=== PATIENT | male | born 1960 | race Caucasian/White ===

== ENCOUNTER 2017-10-30 21:41 | Emergency (ER) | payer OTHER ==
[~2017-10-30] VITALS: Ht 177.8 cm; Wt 90.7 kg
[2017-10-30 21:57] VITALS: BP 127/76
== END 2017-10-30 22:51 | disposition admitted as inpatient to this hospital (09) ==
LOC: ERH 21:41
DX: G47.30 Sleep apnea, unspecified (principal)